=== PATIENT | female | born 1945 | race Hispanic/Latino ===

== ENCOUNTER 2019-10-08 11:03 | Inpatient (IN) | payer OTHER ==
[2019-10-08] MEDS ORDERED: ALBUTEROL INHALER 60 PUFF/8 GM IH ONE ×2 (11:57→12:00)
[2019-10-08] MEDS ORDERED: METHYLPREDNISOLONE 40 MG INJ ONE ×2 (11:57→15:13)
[2019-10-08] MEDS ORDERED: ACETAMINOPHEN 500 MG TAB ONE (11:58)
[2019-10-08 12:13] LABS: Absolute Lymphocytes (CBC) 0.9 K/uL (0.7-4.9); Basophils % 0.3 % (0-1.3); Hematocrit 39.1 % (36.0-45.0); Lymphocytes % 5.4 % (15.3-44.8); MPV 9.1 fL (7.6-11.3); RBC Red Blood Cell Count 4.96 M/uL (3.86-4.86)
[2019-10-08 12:22] LABS: Protime INR 1.04
--- NOTE | 2019-10-08 12:35 | RAD REPORT ---
EXAM DESCRIPTION: Graciela Single View10/08/2019 12:20 pm CLINICAL HISTORY: Shortness of breath COMPARISON: 2013 FINDINGS: Mild bilateral pulmonary opacities. The heart is upper limits normal size IMPRESSION: Mild bilateral pulmonary opacities probably pneumonia
[2019-10-08 13:18] LABS: ALT/SGPT 60 U/L (12-78); AST/SGOT 52 U/L (15-37); Albumin 2.7 g/dL (3.4-5.0); Alkaline Phosphatase 96 U/L (45-117); BUN Blood Urea Nitrogen 12 mg/dL (7-18); Bicarbonate 28 mmol/L (21-32); Bilirubin Direct 0.4 mg/dL (0-0.2); Bilirubin Total 1.1 mg/dL (0.2-1.0); Ferritin 174.3 ng/mL (8-388); Glucose Level 206 mg/dL (74-106); Lipase 137 U/L (73-393); Potassium 3.7 mmol/L (3.5-5.1); Protein, Total 7.3 g/dL (6.4-8.2); Sodium Level 136 mmol/L (136-145); Troponin (Emerg Dept Use Only) < 0.02 ng/mL (0.0-0.045)
[2019-10-08 14:14] LABS: Urine Blood NEGATIVE (NEG); Urine Glucose NEGATIVE (NEG); Urine Protein 2+ (NEG); Urine pH 5.5 (5.0-7.0)
[2019-10-08 14:19] LABS: Urine Bacteria 20-50 /HPF (<20); Urine Culture Reflex Order NOT NEEDED; Urine RBC <5 /HPF (NONE SEEN)
--- NOTE | 2019-10-08 14:23 | ER ---
Nurse's Notes [facility] Name: Maylin Vinson Age: 73 yrs Sex: Female : 1945 Arrival Date: 10/08/2019 Time: 11:11 Bed 17 Private MD: Diagnosis: Coronavirus as the cause of diseases classified elsewhere;Pneumonia due to SARS-associated coronavirus Presentation: 10/07 11:01 Chief complaint: EMS states: pt is Covid positive, pt states that she was in [place] 1 day last week. [facility] due to Pt satting 84% on 2 LPM via NC at home. BGL per EMS 230, 114, 150/80. Coronavirus screen: difficulty breathing, fever, headache, shortness of breath, Client reports previous positive COVID test result. unknown are currently unavailable. Staff notified of need for isolation. Ebola Screen: No symptoms or risks identified at this time. Initial Sepsis Screen: Does the patient meet any 2 criteria? Temp <36.0*C (96.8*F)) or > 38.3*C (100.9*F). HR > 90 bpm. Yes Does the patient have a suspected source of infection? Yes:. Risk Assessment: Do you want to hurt yourself or someone else? Patient reports no desire to harm self or others. Onset of symptoms is unknown. Care prior to arrival: Glucose check: 230 Oxygen administered. via a non-rebreather mask. 11:01 Method Of Arrival: EMS: [facility] 11:01 Acuity: FÁTIMA 3 Historical: - Allergies: 12:26 No Known Allergies; - Home Meds: 12:26 Lantus Sub-Q [Active]; Humalog Sub-Q [Active]; pantoprazole oral oral [Active]; Azithromycin Oral [Active]; Prednisone Oral [Active]; amlodipine oral [Active]; - PMHx: 12:26 Hypertension; Diabetes - IDDM; - PSHx: 12:26 None; - Immunization history:: Adult Immunizations up to date. - Social history:: Smoking status: Patient denies any tobacco usage or history of. Screenin:27 Abuse screen: Denies threats or abuse. Nutritional screening: No deficits noted. Tuberculosis screening: No symptoms or risk factors identified. Fall Risk None identified. Assessment: 11:15 General: Appears uncomfortable, Behavior is cooperative, appropriate for age. Pain: ah Denies pain. Neuro: Level of Consciousness is awake, alert, obeys commands, Oriented to person, place, time, situation, Appropriate for age. Cardiovascular: Capillary refill < 3 seconds Patient's skin is warm and dry. Pulses are palpable in right radial artery and left radial artery Rhythm is sinus tachycardia. Respiratory: Reports shortness of breath at rest cough that is Airway is patent Respiratory effort is even, labored, Respiratory pattern is regular, symmetrical, the patient has moderate shortness of breath. GI: Patient currently denies nausea, vomiting. Derm: Skin is intact, is healthy with good turgor, Skin is dry. 12:00 Reassessment: Pt refused inhaler at this time. Explained the importance and that it ah would help her breathe easier. Pt continued to deny. Notified MD. 12:30 Reassessment: Reassessment: Patient and/or family updated on plan of care and expected ah duration. Pain level reassessed. Patient is alert, oriented x 3, equal unlabored respirations, skin warm/dry/pink. awaiting lab results at this time. Water provided. No needs voiced at this time. 13:30 Reassessment: Patient and/or family updated on plan of care and expected duration. Pain ah level reassessed. Patient is alert, oriented x 3, equal unlabored respirations, skin warm/dry/pink. Pt tolerated medications well. No needs voiced at this time. 13:45 Reassessment: Patient and/or family updated on plan of care and expected duration. Pain ah level reassessed. Patient is alert, oriented x 3, equal unlabored respirations, skin warm/dry/pink. Medications administered at this time. Pt tolerated well. Used language line to communicate with Pt and educate on the importance of the inhaler. Pt voiced understanding. 17:54 Reassessment: Patient and/or family updated on plan of care and expected duration. Pain ah level reassessed. Assisted pt to BSC and back in bed. Pt tolerated fair. Pt connected back to monitor. No needs voiced. Awaiting room assignment upstairs. 19:30 Reassessment: Patient and/or family updated on plan of care and expected duration. Pain ah level reassessed. pt repositioned in bed. No needs voiced a this time. 20:45 Reassessment: Pt assisted to BSC and back into the bed. No other needs voiced at this time. 21:49 Reassessment: Report given to LACIE Pinzon. Vital Signs: 11:01 BP 102 / 85; Pulse 114; Resp 20; Temp 101.5(A); Pulse Ox 94% on Non-rebreather mask; Weight 89.36 kg; Height 5 ft. 2 in. (157.48 cm); 11:30 BP 107 / 49; Pulse 109; Resp 20; Pulse Ox 95% on 4 lpm NC; 13:30 BP 117 / 53; Pulse 93; Resp 20; Pulse Ox 92% on 4 lpm NC; 14:30 BP 136 / 65; Pulse 80; Resp 22; Pulse Ox 91% on 4 lpm NC; 15:00 BP 121 / 71; Pulse 86; Resp 23; Pulse Ox 91% on 4 lpm NC; 16:00 BP 122 / 62; Pulse 84; Resp 22; Pulse Ox 91% on 4 lpm NC; 17:00 BP 122 / 71; Pulse 83; Resp 22; Temp 97.5(A); Pulse Ox 92% on 4 lpm NC; 18:00 BP 122 / 62; Pulse 91; Resp 24; Pulse Ox 91% on 4 lpm NC; 19:00 BP 131 / 66; Pulse 87; Resp 25; Pulse Ox 91% 4 lpm ; 11:01 Body Mass Index 36.03 (89.36 kg, 157.48 cm) ED Course: 11:11 Patient arrived in ED. ss 11:15 One-on-one care X 90 minutes. 11:17 John Crawley, GABI is PHCP. pm1 11:17 Cristino Dunn MD is Attending Physician. pm1 11:50 Inserted saline lock: 20 gauge in right antecubital area, using aseptic technique. 12:05 Initial lab(s) drawn, by ri, sent to lab. First set of blood cultures drawn by ri, Second set of blood cultures drawn by ri, Flu and/or RSV swab sent to lab. Strep swab sent to lab. 12:16 Ainsley Fung RN is Primary Nurse. 12:21 CXR XRAY In Process Unspecified. EDMS 12:24 Triage completed. 12:28 Patient has correct armband on for positive identification. Placed in gown. Bed in low ah position. Call light in reach. Side rails up X2. monitoring tech on. Pulse ox on. NIBP on. 13:45 Verbal reassurance given. Assisted to bedside commode. jp3 14:08 Urine collected: clean catch specimen, clear, jeromy colored, EKG done, by ED staff, jp3 reviewed by John Crawley MUTUEL MACHINE OPERATOR. Oxygen administration via nasal cannula \T\ 4L/min. 14:22 Gallo Campo MD is Hospitalizing Provider. pm1 21:58 No provider procedures requiring assistance completed. Patient admitted, IV remains in place. Administered Medications: 12:00 Drug: Tylenol 1000 mg Route: PO; 22:05 Follow up: Response: No adverse reaction 12:05 Drug: MethylPrednisoLONE 80 mg Route: IVP; Site: right antecubital; 19:20 Follow up: Response: No adverse reaction 12:17 Not Given (Patient Refused): Albuterol HFA Inhaler 2 puffs Inhalation once 14:30 Drug: Albuterol HFA Inhaler 2 puffs Route: Inhalation; 19:19 Follow up: Response: No adverse reaction 15:05 Drug: MethylPrednisoLONE 40 mg Route: IVP; Site: right antecubital; 19:19 Follow up: Response: No adverse reaction 15:05 Drug: Rocephin 1 grams Route: IV; Rate: calculated rate; Site: right antecubital; 19:19 Follow up: Response: No adverse reaction; IV Status: Completed infusion Outcome: 14:23 Decision to Hospitalize by Provider. pm1 21:49 Admitted to ICU accompanied by tech, via stretcher, room 6, with oxygen, with chart, Report called to LACIE Pinzon 21:49 Condition: stable 21:49 Instructed on the need for admit. 21:59 Patient left the ED. Signatures: Dispatcher [employer] EDMarah Tanner RN RN ss Marinas, Patrick, NP MUTUEL MACHINE OPERATOR pm1 Pradeep Galvan jp3 Ainsley Fung RN RN Corrections: (The following items were deleted from the chart) 14:13 12:15 Reassessment: [facility] 19:21 17:00 BP 122 / 71; Pulse 83bpm; Resp 22bpm; Pulse Ox 92% 4 lpm Nasal Cannula; ah ah 19:24 19:23 Reassessment: Patient and/or family updated on plan of care and expected ah duration. Pain level reassessed. Patient is alert, oriented x 3, equal unlabored respirations, skin warm/dry/pink. Medications administered at this time. Pt tolerated well. Used language line to communicate with Pt and educate on the importance of the inhaler. Pt voiced understanding ah
--- NOTE | 2019-10-08 14:24 | EDPHYS ---
Physician Documentation [facility] Name: Maylin Vinson Age: 73 yrs Sex: Female : 1945 Arrival Date: 10/08/2019 Time: 11:11 Bed 17 Private MD: ED Physician Cristino Dunn HPI: 10/07 11:49 This 73 yrs old Female presents to ER via EMS with complaints of Shortness of pm1 breath. 11:49 The patient has shortness of breath at rest. pm1 11:49 Onset: The symptoms/episode began/occurred 1 week(s) ago. Duration: The symptoms are pm1 continuous. The patient's shortness of breath is aggravated by nothing, is alleviated by application of supplemental oxygen. Associated signs and symptoms: Pertinent positives: non-productive cough, fever, Pertinent negatives: chest pain, nausea, vomiting. Severity of symptoms: in the emergency department the symptoms are worse. Has had cough cold and congestion for the past 2 weeks. Diagnosed with covid 1 week ago at [facility] and was observed for one day and discharged home with azithromycin and prednisone. Patient finished her azithromycin and is still taking the prednisone. Patient was not discharged home with supplemental oxygen. She borrowed her daughters canister and was saturating at 84% on 2L NC. contacted her PCP who instructed her to go to the ER for evaluation . Historical: - Allergies: 12:26 No Known Allergies; - Home Meds: 12:26 Lantus Sub-Q [Active]; Humalog Sub-Q [Active]; pantoprazole oral oral [Active]; Azithromycin Oral [Active]; Prednisone Oral [Active]; amlodipine oral [Active]; - PMHx: 12:26 Hypertension; Diabetes - IDDM; - PSHx: 12:26 None; - Immunization history:: Adult Immunizations up to date. - Social history:: Smoking status: Patient denies any tobacco usage or history of. ROS: 11:49 Constitutional: Negative for fever, chills, and weight loss, Eyes: Negative for injury, pm1 pain, redness, and discharge, ENT: Negative for injury, pain, and discharge, Neck: Negative for injury, pain, and swelling, Cardiovascular: Negative for chest pain, palpitations, and edema. 11:49 Abdomen/GI: Negative for abdominal pain, nausea, vomiting, diarrhea, and constipation, Back: Negative for injury and pain, : Negative for injury, bleeding, discharge, and swelling, MS/Extremity: Negative for injury and deformity, Skin: Negative for injury, rash, and discoloration, Neuro: Negative for headache, weakness, numbness, tingling, and seizure. 11:49 Respiratory: Positive for cough, shortness of breath. Exam: 11:49 Constitutional: This is a well developed, well nourished patient who is awake, alert, pm1 and in no acute distress. Head/Face: Normocephalic, atraumatic. Chest/axilla: Normal chest wall appearance and motion. Nontender with no deformity. No lesions are appreciated. 11:49 Abdomen/GI: Soft, non-tender, with normal bowel sounds. No distension or tympany. No guarding or rebound. No evidence of tenderness throughout. Back: No spinal tenderness. No costovertebral tenderness. Full range of motion. Skin: Warm, dry with normal turgor. Normal color with no rashes, no lesions, and no evidence of cellulitis. MS/ Extremity: Pulses equal, no cyanosis. Neurovascular intact. Full, normal range of motion. 11:49 Cardiovascular: Rate: normal, Rhythm: regular, Pulses: no pulse deficits are appreciated. 11:49 Respiratory: the patient does not display signs of respiratory distress, Patient currently on NRB. 11:49 Neuro: Exam negative for acute changes, Orientation: is normal, Mentation: is normal, Motor: moves all fours. Vital Signs: 11:01 BP 102 / 85; Pulse 114; Resp 20; Temp 101.5(A); Pulse Ox 94% on Non-rebreather mask; Weight 89.36 kg; Height 5 ft. 2 in. (157.48 cm); 11:30 BP 107 / 49; Pulse 109; Resp 20; Pulse Ox 95% on 4 lpm NC; ah 13:30 BP 117 / 53; Pulse 93; Resp 20; Pulse Ox 92% on 4 lpm NC; 14:30 BP 136 / 65; Pulse 80; Resp 22; Pulse Ox 91% on 4 lpm NC; ah 15:00 BP 121 / 71; Pulse 86; Resp 23; Pulse Ox 91% on 4 lpm NC; ah 16:00 BP 122 / 62; Pulse 84; Resp 22; Pulse Ox 91% on 4 lpm NC; ah 17:00 BP 122 / 71; Pulse 83; Resp 22; Temp 97.5(A); Pulse Ox 92% on 4 lpm NC; ah 18:00 BP 122 / 62; Pulse 91; Resp 24; Pulse Ox 91% on 4 lpm NC; 19:00 BP 131 / 66; Pulse 87; Resp 25; Pulse Ox 91% 4 lpm ; ah 11:01 Body Mass Index 36.03 (89.36 kg, 157.48 cm) MDM: 11:17 Patient medically screened. pm1 12:14 Refusal of service: The patient/guardian displays adequate decision making capability pm1 and despite a detailed discussion of alternatives, benefits, risks, and consequences refuses: Patient refused to take albuterol. Explanation of benefit and risk through translation service and the patient continues to refuse albuterol. 14:16 Data reviewed: vital signs. Data interpreted: Pulse oximetry: on 4L(s) per nasal pm1 canula, is 92 %. Interpretation: Requires admission according to [facility] covid critieria due to low O2 saturation at e with borrowed oxygen canister and oxygen saturation levels with supplemental oxygen in the ER. 90-94% on 4L NC. 14:16 Counseling: I had a detailed discussion with the patient and/or guardian regarding: the pm1 historical points, exam findings, and any diagnostic results supporting the discharge/admit diagnosis, lab results, radiology results, the need for further work-up and treatment in the hospital. 14:55 Physician consultation: Gallo Campo MD was contacted at 14:55, regarding admission, pm1 patient's condition, and will see patient in ED, would like medications started, additional methylprednisone 40mg IV. 10/07 11:40 Order name: Blood Culture Adult (2) pm10/07 11:40 Order name: BMP pm10/07 11:40 Order name: C-Reactive Protein pm10/07 11:40 Order name: CBC with Diff pm10/07 11:40 Order name: D-Dimer pm10/07 11:40 Order name: Ferritin pm10/07 11:40 Order name: Flu pm10/07 11:40 Order name: Lactate pm10/07 11:40 Order name: LFT's; Complete Time: 13:27 pm1 10/07 11:40 Order name: Lipase; Complete Time: 13:27 pm1 10/07 11:40 Order name: Procalcitonin; Complete Time: 12:58 pm1 10/07 11:40 Order name: PT-INR; Complete Time: 12:37 pm1 10/07 11:40 Order name: Ptt, Activated; Complete Time: 12:37 pm1 10/07 11:40 Order name: Strep; Complete Time: 12:37 pm1 10/07 11:40 Order name: Troponin (emerg Dept Use Only); Complete Time: 13:27 pm1 10/07 11:40 Order name: Blood Culture EDTX 10/07 11:40 Order name: Basic Metabolic Panel; Complete Time: 13:27 EDMS 10/07 11:40 Order name: C-Reactive Protein; Complete Time: 13:27 EDMS 10/07 11:40 Order name: CBC with Automated Diff; Complete Time: 14:53 EDMS 10/07 11:40 Order name: D-Dimer; Complete Time: 12:37 EDTX 10/07 11:40 Order name: Ferritin; Complete Time: 13:27 EDMS 10/07 11:40 Order name: Influenza Screen (A ; Complete Time: 14:06 EDMS 10/07 11:41 Order name: Lactate; Complete Time: 12:37 EDMS 10/07 12:36 Order name: Throat Culture EDTX 10/07 14:03 Order name: Urine Culture 10/07 14:03 Order name: Urine Microscopic Only; Complete Time: 14:53 ss 10/07 14:09 Order name: Urine Dipstick--Ancillary (enter results); Complete Time: 14:53 eb 10/07 14:41 Order name: CBC Smear Scan; Complete Time: 14:53 EDMS 10/07 15:09 Order name: CBC with Automated Diff EDTX 10/07 15:09 Order name: CBC with Automated Diff EDTX 10/07 11:40 Order name: CXR XRAY; Complete Time: 12:37 pm1 10/07 11:40 Order name: EKG; Complete Time: 11:41 pm1 10/07 11:40 Order name: Cardiac monitoring; Complete Time: 12:18 pm1 10/07 11:40 Order name: Droplet/Contact Precautions; Complete Time: 12:18 pm1 10/07 11:40 Order name: EKG - Nurse/Tech; Complete Time: 13:56 pm1 10/07 11:40 Order name: IV Start; Complete Time: 12:18 pm1 10/07 11:40 Order name: Labs collected and sent; Complete Time: 12:18 pm1 10/07 11:40 Order name: O2 Per Protocol; Complete Time: 12:18 pm1 10/07 11:40 Order name: O2 Sat Monitoring; Complete Time: 12:18 pm1 10/07 11:40 Order name: Urine Dipstick-Ancillary (obtain specimen); Complete Time: 13:56 pm1 10/07 15:09 Order name: CONS Pharmacy Consult EDMS 10/07 15:09 Order name: Consistent Carb (ADA) 1800 [address] EDMS 10/07 15:09 Order name: Comprehensive Metabolic Panel EDMS 10/07 15:09 Order name: Comprehensive Metabolic Panel EDMS 10/07 15:13 Order name: C-Reactive Protein EDMS 10/07 15:13 Order name: C-Reactive Protein EDMS 10/07 15:13 Order name: C-Reactive Protein EDMS 10/07 15:13 Order name: C-Reactive Protein EDMS Administered Medications: 12:00 Drug: Tylenol 1000 mg Route: PO; ah 22:05 Follow up: Response: No adverse reaction ah 12:05 Drug: MethylPrednisoLONE 80 mg Route: IVP; Site: right antecubital; ah 19:20 Follow up: Response: No adverse reaction ah 12:17 Not Given (Patient Refused): Albuterol HFA Inhaler 2 puffs Inhalation once ah 14:30 Drug: Albuterol HFA Inhaler 2 puffs Route: Inhalation; ah 19:19 Follow up: Response: No adverse reaction ah 15:05 Drug: MethylPrednisoLONE 40 mg Route: IVP; Site: right antecubital; ah 19:19 Follow up: Response: No adverse reaction ah 15:05 Drug: Rocephin 1 grams Route: IV; Rate: calculated rate; Site: right antecubital; ah 19:19 Follow up: Response: No adverse reaction; IV Status: Completed infusion Disposition: 10/08/19 14:23 Hospitalization ordered by Gallo Campo for Observation. Preliminary diagnosis are Coronavirus as the cause of diseases classified elsewhere, Pneumonia due to SARS-associated coronavirus. - Bed requested for Intensive Care Unit. - Status is Observation. - Condition is Stable. - Problem is new. - Symptoms have improved. Addendum: 10/22/2019 09:36 Co-signature as Attending Physician, Cristino Dunn MD. m a2 Signatures: Dispatcher [employer] Noemí Olguin RN RN John Crawley, INSTRUMENT LENS INSPECTOR INSTRUMENT LENS INSPECTOR pm1 Cristino Dunn MD MD wi2 Ainsley Fung RN RN Corrections: (The following items were deleted from the chart) 10/07 19:21 14:23 Hospitalization Ordered by Gallo Campo MD for Observation. Preliminary dw diagnosis is Coronavirus as the cause of diseases classified elsewhere; Pneumonia due to SARS-associated coronavirus. Bed requested for Telemetry/MedSurg (observation). Status is Observation. Condition is Stable. Problem is new. Symptoms have improved. pm1 19:38 19:21 10/08/2019 14:23 Hospitalization Ordered by Gallo Campo MD for Observation. Preliminary diagnosis is Coronavirus as the cause of diseases classified elsewhere; Pneumonia due to SARS-associated coronavirus. Bed requested for Intensive Care Unit. Status is Observation. Condition is Stable. Problem is new. Symptoms have improved. 21:59 19:38 10/08/2019 14:23 Hospitalization Ordered by Gallo Campo MD for Observation. Preliminary diagnosis is Coronavirus as the cause of diseases classified elsewhere; Pneumonia due to SARS-associated coronavirus. Bed requested for Intensive Care Unit. Status is Observation. Condition is Stable. Problem is new. Symptoms have improved. dw
[2019-10-08 14:41] LABS: Blood Morphology Comment NOT SEEN (NOT SEEN); Platelet Estimate ADEQ; White Blood Cell Scan OK
[2019-10-08] MEDS ORDERED: CEFTRIAXONE/SWI 1gm 1 GM/10 ML SYR ONE (15:13)
--- NOTE | 2019-10-08 15:22 | P.HP ---
Certification for Inpatient With expected LOS: >2 Midnights Practitioner: I am a practitioner with admitting privileges, knowledge of patient current condition, hospital course, and medical plan of care. Services: Services provided to patient in accordance with Admission requirements found in Title 42 Section 412.3 of the Code of Federal Regulations Patient History Date of Service: 10/08/19 Reason for admission: Hypoxemia History of Present Illness: Pt is 73 yrs of age Dx with COVID a week ago. SAt 84% on 2 l O2 c/o worseing SOB and headache.. Hypoxic OA. Tx with pred and zithromax.c/o fever Allergies No Known Allergies Allergy (Verified 05/07/15 13:17) Home Medications: Glimepiride [Amaryl] 4 mg PO DAILY 03/23/13 Metoprolol Tartrate [Lopressor*] 50 mg PO BID 03/23/13 lisinopriL [Prinivil*] 20 mg PO DAILY 03/23/13 Amlodipine Besylate 5 mg PO DAILY 05/07/15 Dapagliflozin Propanediol [Farxiga] 10 mg PO DAILY 05/07/15 - Past Medical/Surgical History Diabetic: Yes -: HTN -: NIDDM -: Breast lumpectomy x 2 - Social History Alcohol use: No Review of Systems General: Fever, Weakness Respiratory: Cough, Shortness of Breath Physical Examination - Vital Signs Temperature: 101.5 F Blood Pressure: 102/85 Pulse: 114 Respirations: 20 Pulse Ox (%): 92 (4l/min) - Physical Exam General: Alert, Cooperative Respiratory: Crackles/rales Cardiovascular: No edema, Normal S1 S2 Gastrointestinal: Normal bowel sounds, Soft and benign - Studies Laboratory Data (last 24 hrs) 10/08/19 11:50: PT 12.3, INR 1.04, APTT 45.6 H 10/08/19 11:50: WBC 17.0 H, Hgb 12.7, Hct 39.1, Plt Count 280 10/08/19 11:50: Sodium 136, Potassium 3.7, BUN 12, Creatinine 0.73, Glucose 206 H, Total Bilirubin 1.1 H, AST 52 H, ALT 60, Alkaline Phosphatase 96, Lipase 137 Microbiology Data (last 24 hrs): 10/08/19 11:57 Nasopharnyx Influenza Type A Antigen Screen - Final 10/08/19 11:57 Nasopharnyx Influenza Type B Antigen Screen - Final 10/08/19 11:57 Throat Group A Streptococcus Rapid Screen - Final Assessment and Plan - Problems (Diagnosis) (1) Pneumonia due to COVID-19 virus Current Visit: Yes Status: Acute Plan: AW pneumonia due to COVID. Failed therapy with zithromax and pred Sick for a week (2) Acute respiratory failure with hypoxia Current Visit: Yes Status: Acute Plan: AW hypoxemia due to resp failure from COVID penumonia. Tx with steroids supplement and O2 . Tight control of BS LAbs and CXRY all reviewd. CRP levels elevated. Anticoagulate.May need high flow or BIPAP - Advance Directives Does patient have a Living Will: No Does patient have a Durable POA for Healthcare: No
[2019-10-08] MEDS: INSULIN -REGULAR HUMAN 50 UNIT/0.5 ML ML SQ SCH ×2 (16:30→22:47)
[2019-10-08] MEDS ORDERED: AMLODIPINE 5 MG TAB ONE (18:09)
[2019-10-08] MEDS ORDERED: ATORVASTATIN 40 MG TAB PO SCH (21:00)
[2019-10-08] MEDS ORDERED: METHYLPREDNISOLONE 125 MG INJ IV SCH (21:00)
[2019-10-08] MEDS ORDERED: D50W 25 GM/50 ML SYRINGE/VIAL IV PRN (21:33)
[2019-10-08] MEDS ORDERED: GLUCAGON 1 MG/VIAL IM PRN (21:33)
[2019-10-08] MEDS ORDERED: INSULIN GLARGINE 100 UNITS/ML SQ SCH (21:33)
[2019-10-08] MEDS: THIAMINE 200 MG/2 ML INJ IVP SCH (22:30)
[2019-10-08] MEDS: APIXABAN 5 MG TABLET PO SCH (22:30)
[2019-10-08] MEDS: MELATONIN 3 MG TABLET PO SCH (22:31)
[2019-10-09 04:43] LABS: Absolute Lymphocytes (CBC) 0.8 K/uL (0.7-4.9); Basophils % 0.3 % (0-1.3); Hematocrit 38.7 % (36.0-45.0); Lymphocytes % 4.6 % (15.3-44.8); RBC Red Blood Cell Count 4.84 M/uL (3.86-4.86)
[2019-10-09 04:44] VITALS: BMI 37.1
[2019-10-09 05:06] LABS: Albumin 2.4 g/dL (3.4-5.0); Bilirubin Total 0.8 mg/dL (0.2-1.0); Potassium 3.8 mmol/L (3.5-5.1)
[2019-10-09] MEDS ORDERED: D50W 25 GM/50 ML SYRINGE/VIAL IV PRN ×2 (07:53→14:04)
[2019-10-09] MEDS ORDERED: GLUCAGON 1 MG/VIAL IM PRN ×2 (07:53→14:04)
[2019-10-09] MEDS: ZINC SULFATE 220 MG CAP PO SCH (08:11)
[2019-10-09] MEDS: INSULIN -REGULAR HUMAN 50 UNIT/0.5 ML ML SQ SCH ×4 (08:11→20:21)
[2019-10-09] MEDS: ASCORBIC ACID 500 MG TABLET PO SCH ×3 (08:11→20:22)
[2019-10-09] MEDS: THIAMINE 200 MG/2 ML INJ IVP SCH (08:11)
[2019-10-09] MEDS: APIXABAN 5 MG TABLET PO SCH ×2 (08:11→20:22)
[2019-10-09] MEDS: INSULIN 70/30 100 UNITS/ML SQ SCH ×2 (08:11→16:30)
[2019-10-09] MEDS: METHYLPREDNISOLONE 125 MG INJ IV SCH ×2 (08:12→16:31)
--- NOTE | 2019-10-09 12:17 | P.PN ---
Subjective Date of Service: 10/09/19 Chief Complaint: Respiratory failure from a cruz virus infection Condition stable patient is still requiring high concentrations of oxygen CRP has increased Physical Examination - Vital Signs Temperature: 97.3 F Blood Pressure: 140/67 Pulse: 86 Respirations: 26 Pulse Ox (%): 92 - Physical Exam General: Alert, Cooperative - Studies Laboratory Data (last 24 hrs) 10/08/19 11:50: PT 12.3, INR 1.04, APTT 45.6 H 10/08/19 11:50: WBC 17.0 H, Hgb 12.7, Hct 39.1, Plt Count 280 10/08/19 11:50: Sodium 136, Potassium 3.7, BUN 12, Creatinine 0.73, Glucose 206 H, Total Bilirubin 1.1 H, AST 52 H, ALT 60, Alkaline Phosphatase 96, Lipase 137 Microbiology Data (last 24 hrs): 10/08/19 11:57 Nasopharnyx Influenza Type A Antigen Screen - Final 10/08/19 11:57 Nasopharnyx Influenza Type B Antigen Screen - Final 10/08/19 11:57 Throat Group A Streptococcus Rapid Screen - Final Assessment & Plan - Problems (Diagnosis) (1) Pneumonia due to COVID-19 virus Current Visit: Yes Status: Acute Plan: P history of positive cruz virus (2) Acute respiratory failure with hypoxia Current Visit: Yes Status: Acute Plan: Respiratory failure acquiring high concentrations of oxygen continue with steroids i had insulin
[2019-10-09] MEDS: VITAMIN D 1000 UNIT TAB PO SCH (12:58)
--- NOTE | 2019-10-09 14:08 | P.PN ---
Subjective Date of Service: 10/09/19 Chief Complaint: Respiratory failure from a cruz virus infection Subjective: Improving (Patient is feeling better from a respiratory standpoint. She is breathing comfortably on 5 L of oxygen via nasal cannula. O2 sats above 90%. During our encounter, she only reported a mild sore throat.), Other Physical Examination - Vital Signs Temperature: 97.3 F Blood Pressure: 140/67 Pulse: 86 Respirations: 26 Pulse Ox (%): 92 - Physical Exam General: In no apparent distress, Cooperative, Obese HEENT: Atraumatic, Normocephalic, EOMI Respiratory: Normal air movement, Other (Nonlabored breathing. No Wheezing or crackles heard.) Cardiovascular: No edema, Normal pulses, Regular rate/rhythm, Normal S1 S2 Gastrointestinal: Normal bowel sounds, Soft and benign, Non-distended Musculoskeletal: No clubbing, No swelling, No contractures, No erythema, No tenderness, No warmth Neurological: Normal speech, Normal tone, Sensation intact, Normal affect - Studies Laboratory Data (last 24 hrs) 10/08/19 11:50: WBC 17.0 H, Hgb 12.7, Hct 39.1, Plt Count 280 Microbiology Data (last 24 hrs): 10/08/19 11:57 Nasopharnyx Influenza Type A Antigen Screen - Final 10/08/19 11:57 Nasopharnyx Influenza Type B Antigen Screen - Final 10/08/19 11:57 Throat Group A Streptococcus Rapid Screen - Final Assessment & Plan - Problems (Diagnosis) (1) Acute respiratory failure with hypoxia Current Visit: Yes Status: Acute (2) Pneumonia due to COVID-19 virus Current Visit: Yes Status: Acute (3) Benign essential hypertension Current Visit: No Status: Active (4) Type II diabetes mellitus with ulcer Current Visit: No Status: Active Physician Review Additional Text: Assessment: The is a 73-year-old female with a past medical history for uncontrolled diabetes mellitus, morbid obesity, and breast cancer currently admitted with acute hypoxemic respiratory failure secondary to COVID 19 pneumonia. Patient is still in the ICU due to high oxygen requirement. However, overall she is improving clinically. 1. Acute hypoxemic respiratory failure due to COVID 19 PNEUMONIA 2. Uncontrolled type II diabetes mellitus with hyperglycemia 3. Morbid obesity 4. Breast cancer PLAN: Continue ICU status with supportive respiratory care. Wean down oxygen as tolerated Continue Solu-Medrol, apixaban, vitamin-B 1 and C along with zinc Resume home regimen of insulin along with insulin sliding scale Check for hemoglobin A1c Patient will most likely need home O2 upon discharge
[2019-10-09] MEDS: ACETAMINOPHEN 500 MG TAB PO PRN (16:30)
[2019-10-09] MEDS: MELATONIN 3 MG TABLET PO SCH (20:22)
[2019-10-09] MEDS: ATORVASTATIN 10 MG TAB PO SCH (20:22)
[2019-10-09] MEDS ORDERED: INSULIN GLARGINE 100 UNITS/ML SQ SCH (21:00)
[2019-10-09] MEDS ORDERED: HOME MED 1 EA UNK (Simvastatin [Simvastatin] 10 MG) PO SCH (21:00)
[2019-10-10] MEDS: METHYLPREDNISOLONE 125 MG INJ IV SCH ×3 (00:10→16:56)
[2019-10-10] MEDS: APIXABAN 5 MG TABLET PO SCH ×2 (08:34→21:12)
[2019-10-10] MEDS: ASCORBIC ACID 500 MG TABLET PO SCH ×3 (08:34→21:12)
[2019-10-10] MEDS: THIAMINE 200 MG/2 ML INJ IVP SCH (08:34)
[2019-10-10] MEDS: AMLODIPINE 10 MG TAB PO SCH (08:34)
[2019-10-10] MEDS: ZINC SULFATE 220 MG CAP PO SCH (08:34)
[2019-10-10] MEDS: VITAMIN D 1000 UNIT TAB PO SCH (08:35)
[2019-10-10] MEDS: INSULIN -REGULAR HUMAN 50 UNIT/0.5 ML ML SQ SCH ×4 (08:35→21:12)
[2019-10-10] MEDS: INSULIN 70/30 100 UNITS/ML SQ SCH ×2 (08:35→16:55)
[2019-10-10] MEDS: INSULIN DEGLUDEC 30 UNIT SQ SCH (09:00)
--- NOTE | 2019-10-10 11:42 | P.PN ---
Subjective Date of Service: 10/19/19 Chief Complaint: Respiratory failure from a cruz virus infection Condition stable improving still requiring high concentrations of oxygen Physical Examination - Vital Signs Temperature: 98.0 F Blood Pressure: 137/66 Pulse: 87 Respirations: 22 Pulse Ox (%): 91 - Studies Microbiology Data (last 24 hrs): 10/08/19 11:57 Throat Culture & Sensitivity - Final NORMAL UPPER RESPIRATORY LILIA GROWN. 10/08/19 13:45 Clean Catch Urine [place] Count - Final BETWEEN 10,000 & 100,000 CFU/ML 10/08/19 13:45 Clean Catch Urine - Final MIXED LILIA. Assessment & Plan - Problems (Diagnosis) (1) Pneumonia due to COVID-19 virus Status: Acute Plan: P history of positive cruz virus (2) Acute respiratory failure with hypoxia Status: Acute Plan: Respiratory failure from cruz virus will order labs today still requiring high concentrations of oxygen increase dose of insulin patient CRP level is declining continue to monitor labs ordered white count is mildly elevated
[2019-10-10 12:19] LABS: Potassium 4.1 mmol/L (3.5-5.1)
--- NOTE | 2019-10-10 12:40 | P.PN ---
Subjective Date of Service: 10/10/19 Chief Complaint: Respiratory failure from a cruz virus infection Subjective: Other (Requiring higher FiO2 since admission, currently on 75% oxygen saturation 89%. Patient is comfortable with the settings as long as she is at rest. She is reporting dyspnea on mild exertion.) Physical Examination - Vital Signs Temperature: 98.0 F Blood Pressure: 137/66 Pulse: 87 Respirations: 22 Pulse Ox (%): 91 - Physical Exam General: In no apparent distress, Cooperative, Other (Lethargic) HEENT: Atraumatic, Normocephalic, EOMI Neck: Supple Respiratory: Crackles/rales (Bilateral crackles. No wheezing) Cardiovascular: No edema, Normal pulses, Regular rate/rhythm, Normal S1 S2 Gastrointestinal: Normal bowel sounds, Soft and benign, Non-distended, No tenderness Musculoskeletal: No clubbing, No swelling, No contractures, No erythema, No tenderness, No warmth Integumentary: No rashes, No breakdown, No significant lesion, No tenderness/swelling, No erythema, No warmth, No cyanosis Neurological: Normal speech, Sensation intact, Normal affect - Studies Microbiology Data (last 24 hrs): 10/08/19 11:57 Throat Culture & Sensitivity - Final NORMAL UPPER RESPIRATORY LILIA GROWN. 10/08/19 13:45 Clean Catch Urine [place] Count - Final BETWEEN 10,000 & 100,000 CFU/ML 10/08/19 13:45 Clean Catch Urine - Final MIXED LILIA. Assessment & Plan - Problems (Diagnosis) (1) Acute respiratory failure with hypoxia Current Visit: Yes Status: Acute (2) Pneumonia due to COVID-19 virus Current Visit: Yes Status: Acute (3) Benign essential hypertension Current Visit: No Status: Active (4) Type II diabetes mellitus with ulcer Current Visit: No Status: Active Physician Review Additional Text: Assessment: Patient is a 73-year-old female with a past medical history for uncontrolled diabetes mellitus, morbid obesity, and breast cancer currently admitted with acute hypoxemic respiratory failure secondary to COVID 19 pneumonia. Patient is still in the ICU due to high oxygen requirement. A significant change coordinator the past 24 hr. She is still requiring a high FiO2, currently in the mid 70s. She has moderately down-trending inflammatory markers CRP in 137. Her hospital course has been complicated by uncontrolled hyperglycemia. Her A1c is 11.9. 1. Acute hypoxemic respiratory failure due to COVID 19 PNEUMONIA 2. Uncontrolled type II diabetes mellitus with hyperglycemia 3. Morbid obesity 4. Breast cancer PLAN: Continue ICU status with supportive respiratory care. Continue high flow O2 with high FiO2, maintain sats > 88% Wean down oxygen as tolerated Continue Solu-Medrol, apixaban, vitamin-B 1 and C along with zinc Insulin regimen adjusted due to steroid-induced hyperglycemia Patient will most likely need home O2 upon discharge
[2019-10-10] MEDS: MELATONIN 3 MG TABLET PO SCH (21:12)
[2019-10-10] MEDS: ATORVASTATIN 10 MG TAB PO SCH (21:12)
[2019-10-11] MEDS: METHYLPREDNISOLONE 125 MG INJ IV SCH ×3 (00:03→18:58)
[2019-10-11 05:36] LABS: BUN Blood Urea Nitrogen 22 mg/dL (7-18); Bicarbonate 30 mmol/L (21-32); Glucose Level 215 mg/dL (74-106); Sodium Level 140 mmol/L (136-145)
[2019-10-11] MEDS: INSULIN -REGULAR HUMAN 50 UNIT/0.5 ML ML SQ SCH ×4 (07:30→21:47)
--- NOTE | 2019-10-11 08:24 | RAD REPORT ---
EXAM DESCRIPTION: Graciela Single View10/11/2019 7:58 am CLINICAL HISTORY: Chest pain COMPARISON: October 08, 2019 FINDINGS: Mild worsening in bilateral pulmonary opacities. Heart is borderline enlarged IMPRESSION: Mild worsening in [id number] bilateral pulmonary opacities probably pneumonia
--- NOTE | 2019-10-11 08:48 | P.PN ---
Subjective Date of Service: 10/11/19 ( telephone visit) Chief Complaint: Respiratory failure from a cruz virus infection condition stable no changes still requiring high concentrations of oxygen Physical Examination - Vital Signs Temperature: 97.2 F Blood Pressure: 142/67 Pulse: 70 Respirations: 25 Pulse Ox (%): 91 - Studies Microbiology Data (last 24 hrs): 10/08/19 11:57 Throat Culture & Sensitivity - Final NORMAL UPPER RESPIRATORY LILIA GROWN. 10/08/19 13:45 Clean Catch Urine [place] Count - Final BETWEEN 10,000 & 100,000 CFU/ML 10/08/19 13:45 Clean Catch Urine - Final MIXED LILIA. Assessment & Plan - Problems (Diagnosis) (1) Pneumonia due to COVID-19 virus Current Visit: Yes Status: Acute Plan: P history of positive cruz virus (2) Acute respiratory failure with hypoxia Current Visit: Yes Status: Acute Plan: resp artery failure clinically improving still on 70% high-flow nasal cannula oxygen white count declining CRP pending will discuss with the patient regarding convalescent plasma and redesmir x-ray shows slight worsening
[2019-10-11] MEDS: INSULIN DEGLUDEC 30 UNIT SQ SCH (09:00)
[2019-10-11] MEDS: VITAMIN D 1000 UNIT TAB PO SCH (09:00)
[2019-10-11 09:07] LABS: Absolute Lymphocytes (CBC) 0.7 K/uL (0.7-4.9); Basophils % 0.4 % (0-1.3); Lymphocytes % 7.4 % (15.3-44.8); MPV 8.9 fL (7.6-11.3); RBC Red Blood Cell Count 5.24 M/uL (3.86-4.86)
[2019-10-11] MEDS: THIAMINE 200 MG/2 ML INJ IVP SCH (09:28)
[2019-10-11] MEDS: ZINC SULFATE 220 MG CAP PO SCH (09:28)
[2019-10-11] MEDS: APIXABAN 5 MG TABLET PO SCH ×2 (09:29→21:46)
[2019-10-11] MEDS: ASCORBIC ACID 500 MG TABLET PO SCH ×3 (09:29→21:46)
[2019-10-11] MEDS: AMLODIPINE 10 MG TAB PO SCH (09:30)
[2019-10-11 09:34] LABS: C-Reactive Protein 60.5 mg/L (<3.00); Ferritin 226.2 ng/mL (8-388)
[2019-10-11 10:20] LABS: Blood Morphology Comment NOT SEEN (NOT SEEN); Platelet Estimate ADEQ
[2019-10-11] MEDS: INSULIN 70/30 100 UNITS/ML SQ SCH ×2 (10:45→18:55)
--- NOTE | 2019-10-11 12:13 | P.PN ---
Subjective Date of Service: 10/11/19 Chief Complaint: Respiratory failure from a cruz virus infection Subjective: Improving (Patient is being wean down the FiO2. Well tolerated. Currently on FiO2 50%, satting 94%. She mentions having mild abdominal pain.) Physical Examination - Vital Signs Temperature: 97.2 F Blood Pressure: 137/66 Pulse: 80 Respirations: 23 Pulse Ox (%): 92 - Physical Exam General: Alert, In no apparent distress, Cooperative HEENT: Atraumatic, Normocephalic, EOMI Neck: Supple Respiratory: Diminished Cardiovascular: No edema, Normal pulses, Regular rate/rhythm, Normal S1 S2 Gastrointestinal: Normal bowel sounds, Soft and benign, Non-distended, No tenderness Musculoskeletal: No clubbing, No swelling, No contractures, No erythema, No tenderness, No warmth Neurological: Normal speech, Sensation intact, Normal affect - Studies Microbiology Data (last 24 hrs): 10/08/19 11:57 Throat Culture & Sensitivity - Final NORMAL UPPER RESPIRATORY LILIA GROWN. 10/08/19 13:45 Clean Catch Urine [place] Count - Final BETWEEN 10,000 & 100,000 CFU/ML 10/08/19 13:45 Clean Catch Urine - Final MIXED LILIA. Assessment & Plan - Problems (Diagnosis) (1) Acute respiratory failure with hypoxia Current Visit: Yes Status: Acute (2) Pneumonia due to COVID-19 virus Current Visit: Yes Status: Acute (3) Benign essential hypertension Current Visit: No Status: Active (4) Type II diabetes mellitus with ulcer Current Visit: No Status: Active Physician Review Additional Text: Assessment: Patient is a 73-year-old female with a past medical history for uncontrolled diabetes mellitus, morbid obesity, and breast cancer currently admitted with acute hypoxemic respiratory failure secondary to COVID 19 pneumonia. Patient is still in the ICU due to high oxygen requirement. She is progressing well, less oxygen requirement and improved inflammatory markers. Her hospital course has been complicated by uncontrolled hyperglycemia. Her A1c is 11.9. 1. Acute hypoxemic respiratory failure due to COVID 19 PNEUMONIA 2. Uncontrolled type II diabetes mellitus with hyperglycemia 3. Morbid obesity 4. Breast cancer PLAN: Continue ICU status with supportive respiratory care. Wean down FiO2 as tolerated Continue Solu-Medrol, apixaban, vitamin-B 1 and C along with zinc Insulin regimen adjusted due to steroid-induced hyperglycemia: 45 units of NPH in the morning, and 35 at night. Patient will most likely need home O2 upon discharge
--- NOTE | 2019-10-11 12:52 | RAD REPORT ---
EXAM DESCRIPTION: RAD - Abdomen 1 View (KUB) - 10/11/2019 12:05 pm CLINICAL HISTORY: Abd Pain COMPARISON: No comparisons FINDINGS: Bowel gas pattern is nonspecific. Air and stool are present in nondilated colon down to th e level of the rectum. Air is seen within the nondistended stomach. No obstruction, free air or pneum atosis. No suspicious calcifications. Lumbar spine degenerative changes are present. Numerous phleboliths are seen along the pelvic floor. IMPRESSION: No obstruction, free air or other suspicious finding identifiable.
[2019-10-11] MEDS ORDERED: INSULIN 70/30 100 UNITS/ML SQ ONE (13:00)
[2019-10-11] MEDS: ATORVASTATIN 10 MG TAB PO SCH (21:45)
[2019-10-11] MEDS: MELATONIN 3 MG TABLET PO SCH (21:46)
[2019-10-12] MEDS: METHYLPREDNISOLONE 125 MG INJ IV SCH ×3 (01:00→17:49)
[2019-10-12 05:32] LABS: Absolute Lymphocytes (CBC) 0.6 K/uL (0.7-4.9); Basophils % 0.6 % (0-1.3); Hematocrit 40.4 % (36.0-45.0); Lymphocytes % 7.7 % (15.3-44.8); RBC Red Blood Cell Count 5.13 M/uL (3.86-4.86)
[2019-10-12 05:46] LABS: BUN Blood Urea Nitrogen 25 mg/dL (7-18); Bicarbonate 31 mmol/L (21-32); Glucose Level 235 mg/dL (74-106); Sodium Level 140 mmol/L (136-145)
--- NOTE | 2019-10-12 07:23 | RAD REPORT ---
EXAM DESCRIPTION: RAD - Chest Single View - 10/12/2019 5:56 am CLINICAL HISTORY: pneumonia COMPARISON: Portable October 10, portable October 07 TECHNIQUE: AP portable chest image was obtained 10/12/2019 5:56 am . FINDINGS: Bilateral pneumonia changes are present not substantially different from comparison. No pr ogressive lung parenchymal process. Heart size and vasculature remain prominent but stable. No measur able pleural effusion and no pneumothorax. No acute bony abnormality seen. No acute aortic findings s uspected. IMPRESSION: Bilateral pneumonia pattern not significantly different from prior day imaging.
[2019-10-12] MEDS ORDERED: INSULIN 70/30 100 UNITS/ML SQ SCH (07:30)
[2019-10-12] MEDS: INSULIN -REGULAR HUMAN 50 UNIT/0.5 ML ML SQ SCH ×4 (08:04→21:30)
[2019-10-12] MEDS: ASCORBIC ACID 500 MG TABLET PO SCH ×3 (08:04→20:47)
[2019-10-12] MEDS: ZINC SULFATE 220 MG CAP PO SCH (08:04)
[2019-10-12] MEDS: THIAMINE 200 MG/2 ML INJ IVP SCH (08:04)
[2019-10-12] MEDS: AMLODIPINE 10 MG TAB PO SCH (08:04)
[2019-10-12] MEDS: VITAMIN D 1000 UNIT TAB PO SCH (08:05)
[2019-10-12] MEDS: APIXABAN 5 MG TABLET PO SCH ×2 (08:05→20:47)
[2019-10-12] MEDS: INSULIN DEGLUDEC 30 UNIT SQ SCH (08:13)
[2019-10-12 08:38] LABS: C-Reactive Protein 34.1 mg/L (<3.00)
--- NOTE | 2019-10-12 08:54 | P.PN ---
Subjective Date of Service: 10/19/19 Chief Complaint: Respiratory failure from a cruz virus infection Patient is not doing much better now on nasal cannula oxygen 4 L no new complaints Physical Examination - Vital Signs Temperature: 97.2 F Blood Pressure: 125/67 Pulse: 79 Respirations: 23 Pulse Ox (%): 93 Assessment & Plan - Problems (Diagnosis) (1) Pneumonia due to COVID-19 virus Status: Acute Plan: P history of positive cruz virus (2) Acute respiratory failure with hypoxia Status: Acute Plan: Patient admitted with respiratory failure from cruz virus she can be disc harged home on 4 L nasal cannula oxygen including prednisone 20 mg p.o. b.i.d. for a week and then 10 mg p.o. twice a day Vania phone visit with me in 1 week CRP level is declined to 34 white count is normalized
[2019-10-12] MEDS: INSULIN 70/30 100 UNITS/ML SQ SCH (16:30)
--- NOTE | 2019-10-12 16:33 | P.PN ---
Subjective Date of Service: 10/12/19 Chief Complaint: Respiratory failure from a cruz virus infection Subjective: Improving (Patient is currently on 4 L of O2 via NC. Cannot tolerate low amount of O2.) Physical Examination - Vital Signs Temperature: 96.8 F Blood Pressure: 121/58 Pulse: 79 Respirations: 24 Pulse Ox (%): 90 - Physical Exam General: In no apparent distress, Cooperative HEENT: Atraumatic Neck: Supple Respiratory: Normal air movement Cardiovascular: No edema, Normal pulses, Regular rate/rhythm, Normal S1 S2 Gastrointestinal: Normal bowel sounds, Non-distended, Distended Musculoskeletal: No clubbing, No swelling, No contractures, No erythema, No tenderness, No warmth Integumentary: No rashes, No breakdown, No significant lesion, No tenderness/swelling, No erythema, No warmth, No cyanosis Neurological: Normal speech, Sensation intact, Normal affect Assessment & Plan - Problems (Diagnosis) (1) Acute respiratory failure with hypoxia Current Visit: Yes Status: Acute (2) Pneumonia due to COVID-19 virus Current Visit: Yes Status: Acute (3) Benign essential hypertension Current Visit: No Status: Active (4) Type II diabetes mellitus with ulcer Current Visit: No Status: Active Physician Review Additional Text: Assessment: Patient is a 73-year-old female with a past medical history for uncontrolled diabetes mellitus, morbid obesity, and breast cancer currently admitted with acute hypoxemic respiratory failure secondary to COVID 19 pneumonia. Patient is still in the ICU due to high oxygen requirement. She is progressing well, less oxygen requirement and improved inflammatory markers. Her hospital course has been complicated by uncontrolled hyperglycemia. Her A1c is 11.9. 1. Acute hypoxemic respiratory failure due to COVID 19 PNEUMONIA 2. Uncontrolled type II diabetes mellitus with hyperglycemia 3. Morbid obesity 4. Breast cancer PLAN: Continue ICU status with supportive respiratory care. Wean down FiO2 as tolerated Continue Solu-Medrol, apixaban, vitamin-B 1 and C along with zinc Insulin regimen adjusted due to steroid-induced hyperglycemia: 55 units of NPH in the morning, and 40 at night. I will start patient on a bowel regimen today Patient will most likely need home O2 upon discharge
[2019-10-12] MEDS ORDERED: POLYETHYL GLY 3350 17 GM/DOSE PO ONE (17:00)
[2019-10-12] MEDS: ATORVASTATIN 10 MG TAB PO SCH (20:47)
[2019-10-12] MEDS: MELATONIN 3 MG TABLET PO SCH (20:47)
[2019-10-12] MEDS: DOCUSATE NA 100 MG CAP PO SCH (20:47)
[2019-10-13] MEDS: METHYLPREDNISOLONE 125 MG INJ IV SCH ×3 (00:10→20:13)
[2019-10-13] MEDS: ACETAMINOPHEN 500 MG TAB PO PRN ×2 (02:43→15:43)
[2019-10-13 05:41] LABS: Absolute Lymphocytes (CBC) 0.6 K/uL (0.7-4.9); Basophils % 0.2 % (0-1.3); Hematocrit 39.3 % (36.0-45.0); Lymphocytes % 8.2 % (15.3-44.8); MPV 8.8 fL (7.6-11.3); RBC Red Blood Cell Count 5.08 M/uL (3.86-4.86)
[2019-10-13 06:20] LABS: BUN Blood Urea Nitrogen 23 mg/dL (7-18); Bicarbonate 32 mmol/L (21-32); Glucose Level 214 mg/dL (74-106); Potassium 4.3 mmol/L (3.5-5.1); Sodium Level 139 mmol/L (136-145)
[2019-10-13] MEDS: ZINC SULFATE 220 MG CAP PO SCH (07:20)
[2019-10-13] MEDS: VITAMIN D 1000 UNIT TAB PO SCH (07:20)
[2019-10-13] MEDS: THIAMINE 200 MG/2 ML INJ IVP SCH (07:21)
[2019-10-13] MEDS: ASCORBIC ACID 500 MG TABLET PO SCH ×3 (07:21→20:14)
[2019-10-13] MEDS: AMLODIPINE 10 MG TAB PO SCH (07:21)
[2019-10-13] MEDS: DOCUSATE NA 100 MG CAP PO SCH ×2 (07:21→20:14)
[2019-10-13] MEDS: APIXABAN 5 MG TABLET PO SCH ×2 (07:21→20:13)
[2019-10-13] MEDS: INSULIN DEGLUDEC 30 UNIT SQ SCH (07:22)
[2019-10-13] MEDS ORDERED: INSULIN 70/30 100 UNITS/ML SQ SCH ×3 (07:30→16:30)
[2019-10-13] MEDS: INSULIN -REGULAR HUMAN 50 UNIT/0.5 ML ML SQ SCH ×4 (07:40→20:14)
--- NOTE | 2019-10-13 11:10 | P.PN ---
Subjective Date of Service: 10/19/19 Chief Complaint: Respiratory failure from a cruz virus infection Patient's condition is stable she is still requiring more than 4 L of nasal cannula oxygen the desaturation on mild exertion Physical Examination - Vital Signs Temperature: 96.8 F Blood Pressure: 119/70 Pulse: 63 Respirations: 18 Pulse Ox (%): 95 Assessment & Plan - Problems (Diagnosis) (1) Pneumonia due to COVID-19 virus Status: Acute Plan: P history of positive cruz virus (2) Acute respiratory failure with hypoxia Status: Acute Plan: Continue to monitor observe continue with steroids CRP levels have been declining patient's family have refuse convalescent plasma and Redesmir/inflammatory markers are improving possible discharge tomorrow on prednisone 20 mg twice a day for a week and 10 mg twice a day for another week
--- NOTE | 2019-10-13 11:28 | P.PN ---
Subjective Date of Service: 10/13/19 Chief Complaint: Respiratory failure from a cruz virus infection Subjective: Worsening (Patient is requiring more oxygen, now on 5L via NC. We're unable to wean her down. Patient is complaininng of left lower extremity pain.) Physical Examination - Vital Signs Temperature: 96.8 F Blood Pressure: 119/70 Pulse: 63 Respirations: 18 Pulse Ox (%): 95 - Physical Exam General: Alert, In no apparent distress, Cooperative HEENT: Atraumatic, Normocephalic, EOMI Neck: Supple Respiratory: Diminished, Crackles/rales Cardiovascular: No edema, Normal pulses, Regular rate/rhythm, Normal S1 S2 Gastrointestinal: Normal bowel sounds, Soft and benign, Non-distended, No tenderness Musculoskeletal: No clubbing, No swelling, No contractures, No erythema, No tenderness, No warmth Integumentary: No rashes, No breakdown, No significant lesion, No tenderness/swelling, No erythema, No warmth, No cyanosis Neurological: Normal speech, Sensation intact, Normal affect Assessment & Plan - Problems (Diagnosis) (1) Acute respiratory failure with hypoxia Current Visit: Yes Status: Acute (2) Pneumonia due to COVID-19 virus Current Visit: Yes Status: Acute (3) Benign essential hypertension Current Visit: No Status: Active (4) Type II diabetes mellitus with ulcer Current Visit: No Status: Active Physician Review Additional Text: Assessment: Patient is a 73-year-old female with a past medical history for uncontrolled diabetes mellitus, morbid obesity, and breast cancer currently admitted with acute hypoxemic respiratory failure secondary to COVID 19 pneumonia. Patient is still in the ICU due to high oxygen requirement. Her discharge was delayed due to increased O2 requirements. Her hospital course has been complicated by uncontrolled hyperglycemia. Her A1c is 11.9. 1. Acute hypoxemic respiratory failure due to COVID 19 PNEUMONIA 2. Uncontrolled type II diabetes mellitus with hyperglycemia 3. Morbid obesity 4. Breast cancer PLAN: Continue ICU status with supportive respiratory care. Wean down oxygen as tolerated Repeat CXR Doppler ultrasound of LLE to R/O DVT Continue Solu-Medrol, apixaban, vitamin-B 1 and C along with zinc Follow daily inflammatory markers Insulin regimen adjusted due to steroid-induced hyperglycemia: 70 units of NPH in the morning, and 50 at night. Modify bowel regimen Patient will need home O2 upon discharge
[2019-10-13] MEDS ORDERED: BISACODYL 10 MG RECTAL SUPP PR ONE (11:35)
[2019-10-13] MEDS ORDERED: INSULIN 70/30 100 UNITS/ML SQ ONE (11:45)
--- NOTE | 2019-10-13 12:04 | RAD REPORT ---
EXAM DESCRIPTION: RAD - Chest Single View - 10/13/2019 11:50 am CLINICAL HISTORY: hypoxia Chest pain. COMPARISON: Chest Single View dated 10/12/2019; Abdomen 1 View (KUB) dated 10/11/2019; Chest Single View dated 10/11/2019; Chest Single View dated 10/08/2019 FINDINGS: Portable technique limits examination quality. Little overall change is seen since 10/12/2019 in the bilateral pulmonary opacities. The heart is mil dly enlarged in size. No displaced fractures. IMPRESSION: Stable chest since 10/12/2019.
--- NOTE | 2019-10-13 12:35 | RAD REPORT ---
EXAM DESCRIPTION: US - Extremity Venous Uni Ltd - 10/13/2019 11:44 am CLINICAL HISTORY: R/O DVT, left leg pain COMPARISON: None. TECHNIQUE: Real-time sonographic evaluation of the left lower extremity deep venous system was perfo rmed. FINDINGS: Normal compressibility, flow augmentation, phasic flow and spontaneous flow are identified in the left lower extremity common femoral, superficial femoral, popliteal and posterior tibial vein s. No intraluminal filling defects seen. IMPRESSION: No DVT in the left lower extremity.
[2019-10-13] MEDS: MELATONIN 3 MG TABLET PO SCH (20:14)
[2019-10-13] MEDS: ATORVASTATIN 10 MG TAB PO SCH (20:14)
[2019-10-14] MEDS: INSULIN -REGULAR HUMAN 50 UNIT/0.5 ML ML SQ SCH ×2 (07:30→11:30)
[2019-10-14] MEDS ORDERED: INSULIN 70/30 100 UNITS/ML SQ SCH (07:30)
[2019-10-14] MEDS: INSULIN DEGLUDEC 30 UNIT SQ SCH (07:33)
[2019-10-14 08:23] VITALS: O2SAT 94
[2019-10-14] MEDS: APIXABAN 5 MG TABLET PO SCH (08:38)
[2019-10-14] MEDS: METHYLPREDNISOLONE 125 MG INJ IV SCH (08:38)
[2019-10-14] MEDS: AMLODIPINE 10 MG TAB PO SCH (08:39)
[2019-10-14] MEDS: DOCUSATE NA 100 MG CAP PO SCH (08:39)
[2019-10-14] MEDS: VITAMIN D 1000 UNIT TAB PO SCH (08:39)
[2019-10-14] MEDS: THIAMINE 200 MG/2 ML INJ IVP SCH (08:39)
[2019-10-14] MEDS: ZINC SULFATE 220 MG CAP PO SCH (08:39)
[2019-10-14] MEDS: ASCORBIC ACID 500 MG TABLET PO SCH (08:40)
--- NOTE | 2019-10-14 11:22 | P.DS ---
Admission Date: 10/08/19 Discharge Date: 10/14/19 Disposition: DC HOME/HOME HEALTH CARE Discharge Condition: GOOD Reason for Admission: Respiratory failure from a cruz virus infection - Problems (1) Acute respiratory failure with hypoxia Current Visit: Yes Status: Acute (2) Pneumonia due to COVID-19 virus Current Visit: Yes Status: Acute (3) Benign essential hypertension Current Visit: No Status: Active (4) Type II diabetes mellitus with ulcer Current Visit: No Status: Active Hospital Course: Patient is a 73 year old female with a PMH with a PMH of uncontrolled type II diabetes mellitus, morbid obesity and breast cancer who was admitted with acute hypoxemic respiratory failure due to COVID 19 PNEUMONIA. She was in the ICU and was slowly to titrate down O2. She eventually improved on a regimen of systemic corticosteroids and anticoagulation. She is now on 3L of O2 via NC with O2 saturation between 88-92%. Vital Signs/Physical Exam: Temp Pulse Resp BP Pulse Ox 96.8 F 67 19 136/61 95 10/14/19 04:00 10/14/19 04:00 10/14/19 04:00 10/14/19 04:00 10/14/19 04:00 General: In no apparent distress, Obese, Other (lethargic) HEENT: Atraumatic, Normocephalic, EOMI Neck: Supple Respiratory: Crackles/rales, Other (bilateral crackles without wheezing) Cardiovascular: No edema, Normal pulses, Regular rate/rhythm, Normal S1 S2 Gastrointestinal: Normal bowel sounds, Soft and benign, Non-distended, No tenderness Musculoskeletal: No clubbing, No swelling, No contractures, No erythema, No tenderness, No warmth Integumentary: No rashes, No breakdown, No significant lesion, No tenderness/swelling, No erythema, No warmth, No cyanosis Neurological: Normal speech, Sensation intact, Normal affect Laboratory Data at Discharge: WBC 7.7 K/uL (4.3-10.9) 10/13/19 04:58 Hgb 13.1 g/dL (12.0-15.0) 10/13/19 04:58 Hct 39.3 % (36.0-45.0) 10/13/19 04:58 Plt Count 372 K/uL (152-406) 10/13/19 04:58 PT 12.3 SECONDS (9.5-12.5) 10/08/19 11:50 INR 1.04 10/08/19 11:50 APTT 45.6 SECONDS (24.3-36.9) H 10/08/19 11:50 Sodium 139 mmol/L (136-145) 10/13/19 04:58 Potassium 4.3 mmol/L (3.5-5.1) 10/13/19 04:58 BUN 23 mg/dL (7-18) H 10/13/19 04:58 Creatinine 0.60 mg/dL (0.55-1.3) 10/13/19 04:58 Glucose 214 mg/dL (74-106) H 10/13/19 04:58 Total Bilirubin 0.8 mg/dL (0.2-1.0) 10/09/19 04:20 AST 32 U/L (15-37) 10/09/19 04:20 ALT 61 U/L (12-78) 10/09/19 04:20 Alkaline Phosphatase 115 U/L (45-117) 10/09/19 04:20 Lipase 137 U/L (73-393) 10/08/19 11:50 Home Medications: lisinopriL [Prinivil*] 40 mg PO DAILY 03/23/13 Amlodipine Besylate 10 mg PO DAILY 05/07/15 Glimepiride [Amaryl] 4 mg PO BID 10/09/19 Insulin Degludec [Tresiba Flextouch U-200] 30 units SQ DAILY 10/09/19 Insulin Glargine Human [Lantus*] 18 units SQ BEDTIME 10/09/19 Simvastatin 10 mg PO BEDTIME 10/09/19 Apixaban [Eliquis] 5 mg PO BID #28 tablet 10/14/19 Ascorbic Acid [Vitamin C*] 500 mg PO TID #42 tablet 10/14/19 Cholecalciferol (Vitamin D3) [Vitamin D 1000 Iu Tab*] 2,000 unit PO DAILY tab 10/14/19 Docusate [Colace Cap*] 100 mg PO BID cap 10/14/19 Insulin 70/30 NPH/Reg Human [Novolin 70/30*] 55 unit SQ 1630 #10 ml 10/14/19 Insulin 70/30 NPH/Reg Human [Novolin 70/30*] 75 unit SQ 0730 #10 ml 10/14/19 Melatonin [Melatonin*] 3 mg PO BEDTIME tablet 10/14/19 Zinc Sulfate [Zinc Sulfate*] 220 mg PO DAILY #14 cap 10/14/19 predniSONE [Deltasone] 20 mg PO BID #14 tab 10/14/19 New Medications: Apixaban [Eliquis] 5 mg PO BID #28 tablet Insulin 70/30 NPH/Reg Human [Novolin 70/30*] 75 unit SQ 0730 #10 ml Insulin 70/30 NPH/Reg Human [Novolin 70/30*] 55 unit SQ 1630 #10 ml predniSONE [Deltasone] 20 mg PO BID #14 tab Ascorbic Acid [Vitamin C*] 500 mg PO TID #42 tablet Zinc Sulfate [Zinc Sulfate*] 220 mg PO DAILY #14 cap
--- NOTE | 2019-10-14 11:22 | P.PN ---
Subjective Date of Service: 10/19/19 Chief Complaint: Respiratory failure from a cruz virus infection Patient is doing much better Physical Examination - Vital Signs Temperature: 96.8 F Blood Pressure: 136/61 Pulse: 67 Respirations: 19 Pulse Ox (%): 95 - Studies Microbiology Data (last 24 hrs): 10/08/19 12:05 Blood - Blood Aerobic Blood Culture - Final No growth in 5 days. 10/08/19 12:05 Blood - Blood Anaerobic Blood Culture - Final No growth in 5 days. 10/08/19 11:50 Blood - Blood Aerobic Blood Culture - Final No growth in 5 days. 10/08/19 11:50 Blood - Blood Anaerobic Blood Culture - Final No growth in 5 days. Assessment & Plan - Problems (Diagnosis) (1) Pneumonia due to COVID-19 virus Status: Acute Plan: P history of positive cruz virus (2) Acute respiratory failure with hypoxia Status: Acute Plan: Clinically improving saturation eyes 94% on 4 L of nasal cannula oxygen patient stable to be discharged on prednisone 20 b.i.d. for a week and then 10 b.i.d. with a telephone visit with me in a week
[2019-10-19 13:19] VITALS: BP 137/66; TEMP 98
== END 2019-10-14 12:50 | disposition home or self-care (01) | DRG 177 ==
LOC: ER 11:03 → ERHOLD 15:12 → 3RD-ICU 21:52
PROVIDERS: ADMIT Internal Medicine Sleep Medicine; ATTEND Internal Medicine
DX: U07.1 COVID-19 (principal); J12.89 Other viral pneumonia; J96.01 Acute respiratory failure with hypoxia; E11.65 Type 2 diabetes mellitus with hyperglycemia; I10 Essential (primary) hypertension; E66.01 Morbid (severe) obesity due to excess calories; Z68.37 Body mass index [BMI] 37.0-37.9, adult; Z79.899 Other long term (current) drug therapy; Z79.52 Long term (current) use of systemic steroids; Z79.4 Long term (current) use of insulin; Z85.3 Personal history of malignant neoplasm of breast
CPT/HCPCS: 36415; 71045; 74018; 80048; 80053; 80076; 81003; 81015; 82728; 82947; 83036; 83605; 83690; 84145; 84484; 85025; 85379; 85610; 85730; 86140; 87040; 87070; 87081; 87086; 87088; 87804; 93005; 93971; 96365; 96366; 96375; 99285; J0696; J1815; J2920; J2930; J3411